=== PATIENT | male | born 1975 | race Caucasian/White ===

== ENCOUNTER 2017-05-04 13:25 | Emergency (ER) | payer OTHER ==
[~2017-05-04] VITALS: Ht 188 cm; Wt 117.9 kg
[~2017-05-04 13:25] MED LIST: AMBIEN; BENICAR; DEPAKOTE 250MG250 M1; DEPAKOTE250 MG; LEVAQUIN 500 M500 MG PO; LEXAPRO 10 MG T10 M1; NORCO 5-325 TA1 EACH PO; PERCOCET 10-321 EACH PO; PREVACID PO; VYVANSE70 MG; ZYPREXA; [UNRECOGNIZED DRUG - REMARK]
[2017-05-04] MEDS ORDERED: NEURONTIN 300300 M1 PO (13:40)
[2017-05-04] MEDS ORDERED: RISPERIDONE 00.25 M1 PO (13:40)
[2017-05-04] MEDS ORDERED: NORCO 5-325 TA1 EACH PO (15:32)
[2017-05-04 15:45] VITALS: BP 138/85
== END 2017-05-04 15:46 | disposition home or self-care (01) ==
LOC: M.ERS 13:25
DX: M25.512 Pain in left shoulder (principal); M79.642 Pain in left hand; M25.562 Pain in left knee; M25.572 Pain in left ankle and joints of left foot; I10 Essential (primary) hypertension; F17.210 Nicotine dependence, cigarettes, uncomplicated; Z88.1 Allergy status to other antibiotic agents; Z88.8 Allergy status to other drugs, medicaments and biological substances; W11.XXXA Fall on and from ladder, initial encounter; Y93.89 Activity, other specified; Y92.89 Other specified places as the place of occurrence of the external cause; Y99.8 Other external cause status

== ENCOUNTER 2018-04-09 12:06 | Emergency (ER) | payer OTHER ==
[~2018-04-09] VITALS: Ht 188 cm; Wt 129.3 kg
[~2018-04-09 12:06] MED LIST changes: +NEURONTIN 300300 M1 PO; +RISPERIDONE 00.25 M1 PO
[2018-04-09] MEDS ORDERED: ATIVAN1 MG PO (12:19)
[2018-04-09] MEDS ORDERED: VYVANSE10 MG PO (12:19)
[2018-04-09] MEDS ORDERED: AUGMENTIN 875-1 EACH PO (12:31)
[2018-04-09] MEDS ORDERED: HYDROCODONE-AP1 EAC6 PO (12:31)
[2018-04-09] MEDS ORDERED: FLEXERIL PO (12:31)
[2018-04-09 12:48] VITALS: BP 150/96
== END 2018-04-09 12:48 | disposition home or self-care (01) ==
LOC: M.ERS 12:06
DX: H66.91 Otitis media, unspecified, right ear (principal); M26.601 Right temporomandibular joint disorder, unspecified; I10 Essential (primary) hypertension; F17.210 Nicotine dependence, cigarettes, uncomplicated; Z88.8 Allergy status to other drugs, medicaments and biological substances